=== PATIENT | female | born 1975 | race Caucasian/White ===

== ENCOUNTER → 2018-06-06 | Outpatient (CLI) | payer OTHER ==
[~2018-06-06] VITALS: Ht 162.6 cm; Wt 108.9 kg
[~2018-06-06] MED LIST: ASPIR 8181 M1 PO; ATORVASTATIN CA40 MG PO; BRINTELLIX20 MG PO; CAPTOPRIL 25 MG25 M1 PO; DIFLUNISAL500 MG PO; FANAPT12 MG PO; JANUMET 50-5001 EACH PO; LAMICTAL100 MG PO; LAMICTAL200 MG PO; LASIX 40 MG TAB40 M2 PO; NORCO 7.5-3251 EACH PO; PERCOCET 7.5-31 EACH PO; PROTONIX40 M1 PO; VENTOLIN HFA 1818 GM INH; VRAYLAR3 MG PO; XANAX1 MG PO; ZANAFLEX2 MG PO
[2018-06-06 08:59] VITALS: BP 119/75
--- NOTE | 2018-06-06 09:39 | NUR ---
Pain Clinic Assessment: 1. History of Osteoarthritis: Right Lower Extremity History of Rheumatoid Arthritis: Not Applicable 2. Height: 5 ft. 4 in. 162.6 cm. Weight: 240.0 lb. oz. 108.864 kg. Patient's BMI: 41.2 3. Vital Signs: BP: 119/75 Pulse: 84 Resp: 20 Temp: 02 Sat: 97 ECG Mon: 4. Pain Intensity: 8 5. Fall Risk: Dizziness: N Needs help standing or walking: N Fallen in the last 3 months: N Fall risk comments: 6. Patient on Blood Thinner: None 7. History of Hypertension: Y 8. Opioid Therapy greater than 6 weeks: Y Opiate Contract Signed: 9. Risk Assessment Tool Provided: 10. Functional Assessment Tool: 11. Recreational Drug Use: Never Drug Type: Tobacco Use: Current Every Day Smoker Tobacco Type: Cigarettes Amount or Packs/day: 1 How Many Years: 30 Alcohol Use: Yes Frequency: Special Occasions Quant: 1-2
== END ==
LOC: PAIN 05-30 06:58
DX: M54.5 Low back pain (principal); M79.604 Pain in right leg; M25.551 Pain in right hip; M25.552 Pain in left hip; F17.210 Nicotine dependence, cigarettes, uncomplicated; Z72.89 Other problems related to lifestyle

== ENCOUNTER → 2018-07-11 | Outpatient (CLI) | payer OTHER ==
[~2018-07-11] VITALS: Ht 162.6 cm; Wt 109.0 kg
[2018-07-11 09:19] VITALS: BP 129/70
--- NOTE | 2018-07-11 09:42 | NUR ---
Pain Clinic Assessment: 1. History of Osteoarthritis: Right Lower Extremity History of Rheumatoid Arthritis: Not Applicable 2. Height: 5 ft. 4 in. 162.6 cm. Weight: 240.4 lb. oz. 109.045 kg. Patient's BMI: 41.2 3. Vital Signs: BP: 129/70 Pulse: 93 Resp: 16 Temp: 02 Sat: 98 ECG Mon: 4. Pain Intensity: 7 5. Fall Risk: Dizziness: N Needs help standing or walking: N Fallen in the last 3 months: N Fall risk comments: 6. Patient on Blood Thinner: None 7. History of Hypertension: Y 8. Opioid Therapy greater than 6 weeks: Y Opiate Contract Signed: 9. Risk Assessment Tool Provided: 10. Functional Assessment Tool: 11. Recreational Drug Use: Never Drug Type: Tobacco Use: Current Every Day Smoker Tobacco Type: Amount or Packs/day: How Many Years: Alcohol Use: Yes Frequency: Quant:
--- NOTE | 2018-07-24 11:24 | HPC ---
[facility] [address] [place] [address] PAIN MANAGEMENT CONSULTATION Name: JAN SARKAR Jae Room #: PRE [facility] MAnaliR.#: [id number] Admission: ������������������ Attend Phys: Vernon Mena MD Discharge: ������������������ Date of : 75 Report #: [id number] THIS REPORT FOR: //name// CC: Vernon Xiao DATE OF SERVICE: 07/12/2018 CHIEF COMPLAINT: Pain down in the right hip and right leg. FOLLOWUP HISTORY: The patient is a 43-year-old female who has been followed in the Pain Clinic because of pain and discomfort. She has had pain for a number of years, dating back to 2012. She has come to the Pain Clinic with a desire to undergo treatment to help decrease the pain and discomfort she is having in her right low back area. ALLERGIES: DARVOCET - CAUSES RASH, TRAMADOL - SEIZURES, BUPROPION - SEIZURES. CURRENT MEDICATIONS: Metformin/ sitagliptin 50/500, Zanaflex 2 mg p.r.n., Protonix 40 mg, albuterol 2 puffs q. six hours p.r.n. wheezing, Lipitor 40 mg, Lasix 40 mg, Lamictal 200 mg, lamotrigine mg, aspirin 81 mg, captopril 25 mg b.i.d., diflunisal 500 mg, Vraylar 3 mg at bedtime, Xanax 1 mg one to two tablets t.i.d., Trintellix 20 mg, Percocet 7.5 mg t.i.d., hydrocodone 7.5 mg q. six hours p.r.n., Fanapt 12 mg b.i.d. PAIN CLINIC ASSESSMENT/PQRS: 1. Osteoarthritis: The patient has some arthritic changes in her left and right hip. She is not being treated for rheumatoid arthritis. 2. Height 5 feet 4 inches, weight 240 pounds, BMI is 41.2. 3. Vital signs: Blood pressure 129/70, pulse 93, respiratory rate 16, room air saturation 98%. 4. Pain intensity: 7/10. 5. Fall risk: The patient has not fallen in the last 3 months. 6. Blood thinner: The patient is not on a blood thinning medication. 7. Hypertension: The patient is being treated for hypertension. 8. Opioids greater than 6 weeks: The patient receives her medication from her primary, greater than 6 weeks. 9. Risk assessment tool: Moderate for opioid use. 10. Functional assessment tool: 37/70. 11. Recreational drug use: The patient denies use of recreational drugs. 12. Alcohol: The patient drinks alcoholic beverages on occasion. 13. Tobacco: The patient smokes prn-[id number] packs of cigarettes per day, smoked for the last 30 years. Discussed the benefits of smoking cessation. PHYSICAL EXAMINATION: GENERAL: The patient is a well-developed, well-nourished, somewhat obese black [address] [address] PAIN MANAGEMENT CONSULTATION Name: JAN SARKAR Room #: PRE [facility] Calvert#: [id number] Admission: ������������������ Attend Phys: Vernon Mena MD Discharge: ������������������ Date of : 75 Report #: [id number] female. She appears her stated age. She is alert, oriented x 3. Her affect is appropriate. Speech is fluent. HEENT: Normocephalic, atraumatic. Extraocular eye muscles are intact. Sclerae are nonicteric. Mucous membranes are moist. NECK: Without adenopathy or JVD. Upper extremity muscle strength is judged to be 5/5 for the major muscle groups in the upper extremities. HEART: Regular rate, S1 and S2. LUNGS: Clear to auscultation without rhonchi or rales. MUSCULOSKELETAL: Lower extremities: The patient complains of pain and discomfort in her right groin area. She also complains of pain in the lateral portion of her right leg. The patient has left and right buttocks pain and discomfort. Muscle strength in the lower extremities judged to be 5-/5 for the major muscle groups in the lower extremities. The patient is without significant scoliosis, kyphosis, or lordosis. The patient has perception of pain that increases on the left side. IMPRESSION: 1. Lumbar radiculopathy L4-L5, right lower extremity. 2. Diabetes type 2. 3. Hyperlipidemia. 4. Hypertension. 5. Hypothyroidism. 6. Seizure history. 7. Sciatic/chronic lumbar pain. 8. Aseptic bilateral right hip necrosis, knee pain. 9. Bipolar/anxious depression. 10. Asthma. 11. Morbid obesity. 12. Tobacco abuse. 13. Chronic obstructive pulmonary disease, obstructive sleep apnea in 2013. 14. Osteoarthritis of lumbar and hips. 15. Hospitalization for GI bleed in 2006. RECOMMENDATIONS: We discussed treatment options with the patient. Risks and benefits of an epidural steroid injection were discussed. Possible complications of the procedure, which could include but are not limited to infection, worsening of pain, no improvement in pain, bleeding, nerve damage. The patient elects to proceed. PROCEDURE NOTE: The patient was taken to the procedure area. She was assisted in getting on the examination table. Her back was sterilely prepped with a Betadine solution and allowed to dry. A pillow was placed on the abdomen to bolster and improve positioning. Fluoroscopy using anterior, posterior as well as lateral viewing were implemented. A 25-gauge needle was then advanced into the area of the right L4-L5 area. This was used to anesthetize the area. A 17-gauge Tuohy using a right paraspinous approach was undertaken. A 17-gauge [facility] [address] [place] [address] PAIN MANAGEMENT CONSULTATION Name: JAN SARKAR Room #: PRE [facility].Jae.#: [id number] Admission: ������������������ Attend Phys: Vernon Mena MD Discharge: ������������������ Date of : 75 Report #: [id number] Tuohy with loss of resistance technique was used to gain access to the epidural space. There was no CSF, heme or paresthesia. A total of 80 mg Depo-Medrol, 40 mg triamcinolone and 2 mL of 0.25% bupivacaine was injected. The patient's pain decreased to 6 at the time of discharge. She remained in the Pain Clinic for an appropriate amount of time. She will follow up in the future as needed. We would like to thank you for letting us participate in her care. We hope she continues to improve. ��������������������������������������������� <ELECTRONICALLY SIGNED> ���������������������������������������� By: Vernon Mena MD ��������������������������������������������� 07/24/18 1124 [id number] Vernon Mena MD /nt
== END | disposition home or self-care (01) ==
LOC: PAIN 06:56
DX: M54.16 Radiculopathy, lumbar region (principal); G89.29 Other chronic pain; I10 Essential (primary) hypertension; E03.9 Hypothyroidism, unspecified; E78.5 Hyperlipidemia, unspecified; E11.9 Type 2 diabetes mellitus without complications; F31.9 Bipolar disorder, unspecified; E66.01 Morbid (severe) obesity due to excess calories; J44.9 Chronic obstructive pulmonary disease, unspecified; M19.90 Unspecified osteoarthritis, unspecified site; F17.200 Nicotine dependence, unspecified, uncomplicated; Z87.19 Personal history of other diseases of the digestive system; Z98.890 Other specified postprocedural states; Z79.899 Other long term (current) drug therapy; Z88.8 Allergy status to other drugs, medicaments and biological substances; Z79.891 Long term (current) use of opiate analgesic; Z68.41 Body mass index [BMI] 40.0-44.9, adult; Z79.82 Long term (current) use of aspirin

== ENCOUNTER → 2018-10-10 | Outpatient (CLI) | payer OTHER ==
[~2018-10-10] VITALS: Ht 162.6 cm; Wt 110.6 kg
--- NOTE | ~2018-10-10 | HPC ---
[facility] [address] [place] [address] PAIN MANAGEMENT CONSULTATION Name: JAN SARKAR Room #: REG [facility] Sonido.#: [id number] Admission: 10/10/18 ������������������ Attend Phys: Vernon Mena MD Discharge: ������������������ Date of : 75 Report #: [id number] THIS REPORT FOR: //name// CC: Vernon Xiao MD DATE OF SERVICE: 10/10/2018 CHIEF COMPLAINT: Low back pain that is going down into both legs and into the ankles. HISTORY: The patient is a 43-year-old female who has been followed in the pain clinic. She has had pain for a number of years. States all the way back to 2012. She has undergone epidural steroid injections and gleaned benefits from these. She has noticed now a recurrence of pain and discomfort. Radiates down in the lower portion of her back down into her hips and buttocks areas. She describes it as a constant, burning, shooting, and aching discomfort. There is a stabbing sensation. She rates it as a 7/10. It is exacerbated when she walks and progressively gets worse as the day wears on. She notes that her pain improves somewhat if she props her right side up. Medications were helpful. Rest is beneficial as well. She has returned today to the pain clinic for evaluation because of the worsening of her discomfort. ALLERGIES: DARVOCET -- CAUSE RASH, TRAMADOL -- SEIZURES, BUPROPION MAL SEIZURES. CURRENT MEDICATIONS: Metformin/sitagliptin 50/500, Zanaflex 2 mg p.r.n., Protonix 40 mg, albuterol 2 puffs q. 6 hours p.r.n. wheezing, Lipitor 40 mg, Lasix 40 mg, Lamictal 200 mg, lamotrigine, aspirin 81 mg, captopril 25 mg, b.i.d. diflunisal 500 mg, 3 grams at bedtime, Xanax 1 mg t.i.d., Trintellix 20 mg, Percocet 7.5 mg t.i.d., hydrocodone 7.5 mg q. 6 hours p.r.n., and Fanapt 12 mg b.i.d. PAIN CLINIC ASSESSMENT/PQRS: 1. Osteoarthritis. The patient has some osteoarthritic changes in her left hip. She is not being treated for rheumatoid arthritis. 2. Height is 5 feet 4 inches, weight 243 pounds, BMI is 41. 3. Vital signs: Blood pressure 118/87, pulse 82, respiratory rate 16, room air saturation 97%. 4. Pain intensity 7/10. 5. Fall risk. The patient states that she did fall and collapse in trying to catch herself. Did not seek medical attention. 6. Blood thinner. The patient is not on a blood thinning medication. 7. Hypertension. The patient is being treated for hypertension. 8. Opioids greater than [address] [address] PAIN MANAGEMENT CONSULTATION Name: JAN SARKAR Jae Room #: REG [facility] Enrike#: [id number] Admission: 10/10/18 ������������������ Attend Phys: Vernon Mena MD Discharge: ������������������ Date of : 75 Report #: [id number] 9. Risk assessment tool low for opioid use. 10. Functional assessment tool 37/70. 11. Recreational drug use. The patient denies. 12. Tobacco: The patient continues to smoke and smokes 1 pack of cigarettes per day, has smoked for the last 30 years. I discussed the benefits of smoking cessation. 13. Alcohol. The patient denies frequent use of alcoholic beverages. PHYSICAL EXAMINATION: GENERAL: The patient is a well-developed, well-nourished, obese black female, appears her stated age. She is alert and oriented x 3. Her affect is appropriate. Speech is fluent. HEENT: Normocephalic, atraumatic. Extraocular eye muscles intact. Sclerae nonicteric. Mucous membranes are moist. NECK: Without adenopathy or JVD. HEART: Regular rate. S1, S2. LUNGS: Clear to auscultation without rhonchi or rales. EXTREMITIES: Upper extremity muscle strength judged to be 5/5 for the major muscle groups in the upper extremity. Lower extremity, the patient complains of pain and discomfort in the right groin area. Also, has pain in the lateral portion of her right leg. She has pain in the right buttocks, has pain radiating down into her legs in the L4-L5 dermatomal distribution. IMPRESSION: 1. Lumbar radiculopathy, right lower extremity. 2. Diabetes type 2. 3. Hyperlipidemia. 4. Hypertension. 5. Hypothyroidism. 6. Seizure history. 7. Sciatic/chronic lumbar pain. 8. Aseptic bilateral right hip necrosis/knee pain. 9. Bipolar/anxious/depression. 10. Asthma. 11. Morbid obesity. 12. Tobacco abuse. 13. Chronic obstructive pulmonary disease. 14. Obstructive sleep apnea in 2013. 15. 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 16. Hospitalization for gastrointestinal bleed in 2006. RECOMMENDATIONS: We discussed treatment options with the patient. At this point, she feels that an epidural steroid injection is warranted. She is experiencing pain that is radiating down into her legs. She has had epidural steroid injections and gleaned benefits from these in the past. She has had no complications from them. She would like to proceed with an injection to help [facility] [address] [place] [address] PAIN MANAGEMENT CONSULTATION Name: JAN SARKAR Jae Room #: REG [facility] Sonido.#: [id number] Admission: 10/10/18 ������������������ Attend Phys: Vernon Mena MD Discharge: ������������������ Date of : 75 Report #: [id number] curtail her pain and discomfort. Risks and benefits which could include but are not limited to infection, increased muscle soreness, headache, bleeding, nerve damage, and paralysis were discussed. She elected to proceed. PROCEDURE NOTE: The patient was taken to the procedure area. She was then assisted in getting on the examination table. A pillow was placed under her abdomen to bolster and improve positioning. Fluoroscopy was used. The anterior, posterior as well as lateral, 2 view up and for needle placement. Her back was sterilely prepped with a Betadine solution. A 0.25% bupivacaine was infiltrated at the L4-L5 interspace. A 17-gauge Tuohy with loss of resistance technique was used to gain access to the epidural space. There was no CSF, heme, or paresthesia. After the L4-L5 interspace was anesthetized using a 25-gauge needle. A 17-gauge Tuohy with loss of resistance technique was used to gain access to the epidural space. There was no CSF, heme or paresthesia. A total of 80 mg Depo-Medrol, 40 mg triamcinolone, and 2 mL of 0.25% bupivacaine was injected. The patient tolerated the procedure well. There were no complications. She had 7 seconds fluoroscopy time. She will follow up in the future as needed. We would like to thank you for letting us participate in her care. We hope she continues to improve. ��������������������������������������������� ���������������������������������������� By: ��������������������������������������������� 1110 1323 Vernon Mena MD /[facility]
[2018-10-10 11:11] VITALS: BP 119/87
--- NOTE | 2018-10-10 11:23 | NUR ---
Pain Clinic Assessment: 1. History of Osteoarthritis: Right Lower Extremity History of Rheumatoid Arthritis: Not Applicable 2. Height: 5 ft. 4 in. 162.6 cm. Weight: 243.8 lb. oz. 110.587 kg. Patient's BMI: 41.8 3. Vital Signs: BP: 119/87 Pulse: 82 Resp: 16 Temp: 02 Sat: 97 ECG Mon: 4. Pain Intensity: 7 5. Fall Risk: Dizziness: Y Needs help standing or walking: N Fallen in the last 3 months: Y Fall risk comments: 6. Patient on Blood Thinner: None 7. History of Hypertension: Y 8. Opioid Therapy greater than 6 weeks: Y Opiate Contract Signed: 9. Risk Assessment Tool Provided: 3-LOW 10. Functional Assessment Tool: 11. Recreational Drug Use: Never Drug Type: Tobacco Use: Current Every Day Smoker Tobacco Type: Cigarettes Amount or Packs/day: 1 PACK How Many Years: 30 Alcohol Use: No Frequency: Quant:
== END | disposition home or self-care (01) ==
LOC: PAIN 07-04 07:34
DX: M54.16 Radiculopathy, lumbar region (principal); E11.9 Type 2 diabetes mellitus without complications; E78.5 Hyperlipidemia, unspecified; I10 Essential (primary) hypertension; E03.9 Hypothyroidism, unspecified; G89.29 Other chronic pain; F41.9 Anxiety disorder, unspecified; F32.9 Major depressive disorder, single episode, unspecified; J45.909 Unspecified asthma, uncomplicated; E66.01 Morbid (severe) obesity due to excess calories; J44.9 Chronic obstructive pulmonary disease, unspecified; M47.896 Other spondylosis, lumbar region; F17.210 Nicotine dependence, cigarettes, uncomplicated; Z88.8 Allergy status to other drugs, medicaments and biological substances; Z79.84 Long term (current) use of oral hypoglycemic drugs; Z79.899 Other long term (current) drug therapy; Z79.82 Long term (current) use of aspirin

== ENCOUNTER → 2018-12-14 | Outpatient (CLI) | payer OTHER ==
[~2018-12-14] VITALS: Ht 162.6 cm; Wt 113.0 kg
--- NOTE | ~2018-12-14 | HPC ---
[facility] [address] [place] [address] PAIN MANAGEMENT CONSULTATION Name: JAN SARKAR Room #: REG [facility] Sonido.#: [id number] Admission: 12/14/18 Attend Phys: Vernon Mena MD Discharge: Date of : 75 Report #: [id number] THIS REPORT FOR: //name// CC: Vernon Xiao DATE OF SERVICE: 12/14/2018 CHIEF COMPLAINT: Pain in the low back that continues to radiate down into both legs and down into the side of the ankles. HISTORY: The patient is a 43-year-old female who has been seen in the pain clinic because of lumbar radiculopathy. She has undergone epidural steroid injection and gleaned benefit from this. She returns today indicating that her pain continues to be problematic. She rates it as an 8/10. Did receive about 75% improvement after the last injection, but her pain has reoccurred at this juncture. She has had no complications from the procedure. She continues to have pain that is described as burning, shooting, aching, throbbing, sharp and stabbing. Notes the pain is exacerbated when she is walking. Pain continues to worsen as the day wears on. Sitting as well as standing can be problematic. Sometimes she notes her pain is improved when she props her right side up. Medications and rest are beneficial. Denies any new problems with bowel or bladder function. ALLERGIES: DARVOCET CAUSE RASH, TRAMADOL SEIZURES, BUPROPION SEIZURES. CURRENT MEDICATIONS: Metformin/sitagliptin 50/500, Zanaflex 2 mg, Protonix 40 mg, albuterol puff 2 q.6 hours p.r.n. wheezing, Lipitor 40 mg, Lasix 40 mg, Lamictal 200 mg, lamotrigine, aspirin 81 mg, captopril 25 mg b.i.d., diflunisal 500 mg, Xanax 1 mg t.i.d., Trintellix 20 mg, Percocet 7.5 mg t.i.d., hydrocodone 7.5 mg q.6 hours p.r.n., Fanapt 12 mg b.i.d. PAIN CLINIC ASSESSMENT AND PQRS: 1. Osteoarthritis. The patient has some osteoarthritic changes in her hip. She is not being treated for rheumatoid arthritis. 2. Height 5 feet 4 inches, weight 249 pounds, BMI is 42. 3. Blood pressure 132/65, pulse 73, respiratory rate 16, room air saturation 95%. 4. Pain intensity, 10. 5. Fall history. The patient has not fallen in the last 3 months. 6. Blood thinner. The patient is not on a blood thinning medication. 7. Hypertension. The patient is being treated for hypertension. 8. Opioids greater than 6 weeks. The patient receives her medications from one source. 9. Risk assessment tool, 07/08 low. 10. Functional assessment tool, [place] [address] PAIN MANAGEMENT CONSULTATION Name: MELLOJAN Room #: REG [facility] Calvert#: [id number] Admission: 12/14/18 Attend Phys: Vernon Mena MD Discharge: Date of : 75 Report #: [id number] 11. Recreational drug use. The patient denies use of recreational drugs. 12. Tobacco: The patient currently smokes. Smoking cessation benefits have been discussed. 13. Alcohol: The patient denies frequent use of alcoholic beverages. PHYSICAL EXAMINATION: GENERAL: The patient is a well-developed, well-nourished, obese, black female. Appears her stated age. She is alert and oriented x 3. Her affect is appropriate. Speech is fluent. HEENT: Normocephalic, atraumatic. Extraocular eye muscles intact. Sclerae nonicteric. Mucous membranes are moist. NECK: Without adenopathy or JVD. HEART: Regular rate. S1, S2. LUNGS: Clear to auscultation without rhonchi or rales. MUSCULOSKELETAL: Upper extremity muscle strength judged to be 5/5 for the major muscle groups in the upper extremity. Lower extremity, the patient complains of pain and discomfort that radiates down into her right groin area. The patient has some pain in the lateral portions of her right leg as well. Has pain, which is most problematic in the L4-L5 dermatomal distribution today. IMPRESSION: 1. Lumbar radiculopathy, right lower extremity. 2. Diabetes type 2. 3. Hyperlipidemia. 4. Hypertension. 5. Hypothyroidism. 6. Seizure history. 7. Sciatic/chronic lumbar pain. 8. Aseptic bilateral hip necrosis/knee pain. 9. Bipolar/anxious/depression. 10. Asthma. 11. Morbid obesity. 12. Tobacco abuse. 13. Chronic obstructive pulmonary disease. 14. Obstructive sleep apnea in 2013. 15. 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 16. Hospitalization for gastrointestinal bleed in 2006. RECOMMENDATIONS: We discussed treatment options with the patient. Risks and benefits of an epidural steroid injection were discussed. Possible complications of the procedure were again reviewed. They include but are not limited to infection, worsening pain, no improvement in pain, increased muscle soreness, possibility of nerve damage. The patient elects to proceed. PROCEDURE NOTE: The patient was taken to the procedure area. She was then assisted in getting on the examination table. A pillow was placed under the [facility] [address] [place] [address] PAIN MANAGEMENT CONSULTATION Name: JAN SARKAR Room #: REG [facility] Sonido.#: [id number] Admission: 12/14/18 Attend Phys: Vernon Mena MD Discharge: Date of : 75 Report #: [id number] abdomen to bolster and improve positioning. Fluoroscopy using anterior and posterior viewing were undertaken. A Betadine solution was placed at the L4-L5 area. This was allowed to dry. A 25-gauge needle was then used to anesthetize the area. After this area had been anesthetized, a 17-gauge Tuohy with loss of resistance technique was used to gain access to the epidural space. There was no CSF, heme or paresthesia. Total of 80 mg Depo-Medrol, 40 mg triamcinolone and 2 mL of 0.25% bupivacaine was injected. The patient tolerated the procedure well. There were no complications. She remained in the pain clinic for an appropriate amount of time. She will follow up in the future as needed. We have reminded the patient that glucose levels may arise as a result of epidural steroid injections. She will monitor blood glucose levels and seek treatment should she note it to be problematic. By: [id number] Vernon Mena MD /[facility]
[2018-12-14 08:41] VITALS: BP 132/65
--- NOTE | 2018-12-14 08:52 | NUR ---
Pain Clinic Assessment: 1. History of Osteoarthritis: Right Lower Extremity History of Rheumatoid Arthritis: Not Applicable 2. Height: 5 ft. 4 in. 162.6 cm. Weight: 249.2 lb. oz. 113.037 kg. Patient's BMI: 42.8 3. Vital Signs: BP: 132/65 Pulse: 73 Resp: 16 Temp: 02 Sat: 94 ECG Mon: 4. Pain Intensity: 8 5. Fall Risk: Dizziness: Y Needs help standing or walking: N Fallen in the last 3 months: N Fall risk comments: 6. Patient on Blood Thinner: None 7. History of Hypertension: Y 8. Opioid Therapy greater than 6 weeks: Y Opiate Contract Signed: 9. Risk Assessment Tool Provided: 3-LOW 10. Functional Assessment Tool: 11. Recreational Drug Use: Never Drug Type: Tobacco Use: Current Every Day Smoker Tobacco Type: Amount or Packs/day: How Many Years: Alcohol Use: No Frequency: Quant:
== END | disposition home or self-care (01) ==
LOC: PAIN 12-05 06:49
DX: M54.16 Radiculopathy, lumbar region (principal); G89.29 Other chronic pain; I10 Essential (primary) hypertension; E11.9 Type 2 diabetes mellitus without complications; E78.5 Hyperlipidemia, unspecified; E03.9 Hypothyroidism, unspecified; J44.9 Chronic obstructive pulmonary disease, unspecified; R56.9 Unspecified convulsions; F31.9 Bipolar disorder, unspecified; E66.01 Morbid (severe) obesity due to excess calories; F17.210 Nicotine dependence, cigarettes, uncomplicated; G47.33 Obstructive sleep apnea (adult) (pediatric); M19.90 Unspecified osteoarthritis, unspecified site; Z87.19 Personal history of other diseases of the digestive system; Z98.890 Other specified postprocedural states; Z79.899 Other long term (current) drug therapy; Z88.8 Allergy status to other drugs, medicaments and biological substances; Z79.891 Long term (current) use of opiate analgesic; Z79.82 Long term (current) use of aspirin; Z68.41 Body mass index [BMI] 40.0-44.9, adult

== ENCOUNTER → 2019-04-10 | Outpatient (CLI) | payer OTHER ==
[~2019-04-10] VITALS: Ht 162.6 cm; Wt 107.7 kg
[2019-04-10 10:47] VITALS: BP 121/70
--- NOTE | 2019-04-10 10:58 | NUR ---
Pain Clinic Assessment: 1. History of Osteoarthritis: Right Lower Extremity History of Rheumatoid Arthritis: Not Applicable 2. Height: 5 ft. 4 in. 162.6 cm. Weight: 237.4 lb. oz. 107.684 kg. Patient's BMI: 40.7 3. Vital Signs: BP: 121/70 Pulse: 96 Resp: 16 Temp: 02 Sat: 98 ECG Mon: 4. Pain Intensity: 7 5. Fall Risk: Dizziness: N Needs help standing or walking: N Fallen in the last 3 months: N Fall risk comments: 6. Patient on Blood Thinner: None 7. History of Hypertension: Y 8. Opioid Therapy greater than 6 weeks: Y Opiate Contract Signed: 9. Risk Assessment Tool Provided: 3-LOW 10. Functional Assessment Tool: 11. Recreational Drug Use: Never Drug Type: Tobacco Use: Current Every Day Smoker Tobacco Type: Cigarettes Amount or Packs/day: 2 How Many Years: 30 Alcohol Use: Yes Frequency: Weekly Quant: 2-4
--- NOTE | 2019-04-24 13:08 | HPC ---
[facility] [address] [place] [address] PAIN MANAGEMENT CONSULTATION Name: JAN SARKAR Jae Room #: REG GRACE Sonido.#: [id number] Admission: 04/10/19 Attend Phys: Vernon Mena MD Discharge: Date of : 75 Report #: [id number] THIS REPORT FOR: //name// CC: Vernon Xiao DATE OF SERVICE: 04/10/2019 CHIEF COMPLAINT: Return of low back pain. HISTORY: The patient is a 44-year-old who has been seen in the pain clinic because of lumbar radiculopathy. She has undergone epidural steroid injections. After injections, she received about 75% of pain improvement. Her last injection was in 12/2018. At this point, she has noticed that she is experiencing pain in the lumbar area that radiates down into her back and into both legs. Also, has some discomfort in the lateral portion of her ankles. Injections have been helpful. She has had some problems with her pain since 2012. Describes the pain now as a burning, shooting, aching discomfort with throbbing and rates it as a 7/10. Walking is somewhat problematic. Notes that her pain worsens as the day progresses. Sitting and standing can be problematic. Finds that if she props her right side up and uses medications, her pain improves somewhat. She has returned today for an injection. ALLERGIES: DARVOCET cause rash, TRAMADOL cause seizures CURRENT MEDICATIONS: Metformin/sitagliptin 50/500, Zanaflex 2 mg, Protonix 40 mg, albuterol puff two q. 6 hours p.r.n. wheezing, Lipitor 40 mg, Lasix 40 mg, Lamictal 200 mg, and lamotrigine, aspirin 81 mg, captopril 25 mg, Diflunisal 500 mg, Xanax 1 mg t.i.d., Trintellix 20 mg, Percocet 7.5 mg t.i.d., hydrocodone 7.5 mg q. 6 hours p.r.n., and Fanapt 12 mg b.i.d. PHYSICAL EXAMINATION: GENERAL: The patient is a well-developed, well-nourished, obese black female, appears her stated age. She is alert and oriented x 3. Her affect is appropriate. The patient is having pain and discomfort, which radiating down into her legs. She has pain and discomfort today in the L4-L5 dermatomal distribution. IMPRESSION: 1. Lumbar radiculopathy, right lower extremity. 2. Type 2 diabetes. 3. Hyperlipidemia. 4. Hypertension. 5. Hypothyroidism. 6. Seizure history. 7. [place] [address] PAIN MANAGEMENT CONSULTATION Name: MELLOJAN Room #: REG GRACE Head.#: [id number] Admission: 04/10/19 Attend Phys: Vernon Mena MD Discharge: Date of : 75 Report #: [id number] 8. Aseptic bilateral hip necrosis/knee pain. 9. Bipolar/anxious depression. 10. Asthma. 11. Morbid obesity. 12. Tobacco abuse. 13. Chronic obstructive pulmonary disease. 14. Chronic sleep apnea since 2013. 15. 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 16. Hospitalization for esophageal bleed in 2006. RECOMMENDATIONS: We discussed treatment options with the patient. Risks and benefits of an epidural steroid injection were discussed. Possible complications of the procedure, which could include but are not limited to infection, worsening of pain, no improvement in pain, spinal headache, nerve damage were reviewed. The patient elects to proceed. PROCEDURE NOTE: The patient was taken to the procedure area. She has been assisted in getting on the examination table. Her back was sterilely prepped with a Betadine solution. A 0.25% bupivacaine was infiltrated at the L4-L5 area using 0.25% bupivacaine, and a 25-gauge needle. Aspiration at the L4-L5 area was performed after a 17-gauge Tuohy with loss of resistance technique was used to gain access at the L4-L5 interspace. A total of 80 mg Depo-Medrol, 40 mg triamcinolone and 2 mL of 0.25% bupivacaine was injected. The patient will follow and monitor blood sugars. She will call us if she has any concerns. The patient's pain will be monitored. She will call us if she has any concerns. <ELECTRONICALLY SIGNED> By: Vernon Mena MD 04/24/19 [id number] Vrenon Mena MD /nt
== END | disposition home or self-care (01) ==
LOC: PAIN 07:02
DX: M54.16 Radiculopathy, lumbar region (principal); G89.29 Other chronic pain; F17.210 Nicotine dependence, cigarettes, uncomplicated; Z98.890 Other specified postprocedural states; Z79.899 Other long term (current) drug therapy; Z88.8 Allergy status to other drugs, medicaments and biological substances; Z79.82 Long term (current) use of aspirin

== ENCOUNTER → 2019-09-27 | Outpatient (CLI) | payer OTHER ==
[~2019-09-27] VITALS: Ht 162.6 cm; Wt 100.2 kg
[2019-09-27 12:47] VITALS: BP 127/71
--- NOTE | 2019-09-27 12:53 | NUR ---
Pain Clinic Assessment: 1. History of Osteoarthritis: Right Lower Extremity LOW BACK History of Rheumatoid Arthritis: Not Applicable 2. Height: 5 ft. 4 in. 162.6 cm. Weight: 220.8 lb. oz. 100.154 kg. Patient's BMI: 37.9 3. Vital Signs: BP: 127/71 Pulse: 95 Resp: 20 Temp: 02 Sat: 97 ECG Mon: 4. Pain Intensity: 7 5. Fall Risk: Dizziness: N Needs help standing or walking: N Fallen in the last 3 months: N Fall risk comments: 6. Patient on Blood Thinner: None 7. History of Hypertension: Y 8. Opioid Therapy greater than 6 weeks: Y Opiate Contract Signed: 9. Risk Assessment Tool Provided: 3-LOW 10. Functional Assessment Tool: 11. Recreational Drug Use: Never Drug Type: Tobacco Use: Current Every Day Smoker Tobacco Type: Cigarettes Amount or Packs/day: PACK How Many Years: Alcohol Use: Yes Frequency: Weekly Quant: 1-2
== END | disposition home or self-care (01) ==
LOC: PAIN 04-03 06:52 → EDSTATUS 04-03 12:38 → PAIN 04-03 13:27
DX: M54.16 Radiculopathy, lumbar region (principal); G89.29 Other chronic pain; I10 Essential (primary) hypertension; E78.5 Hyperlipidemia, unspecified; E03.9 Hypothyroidism, unspecified; E11.9 Type 2 diabetes mellitus without complications; J44.9 Chronic obstructive pulmonary disease, unspecified; F31.9 Bipolar disorder, unspecified; G47.30 Sleep apnea, unspecified; F17.210 Nicotine dependence, cigarettes, uncomplicated; Z98.890 Other specified postprocedural states; Z79.899 Other long term (current) drug therapy

== ENCOUNTER → 2020-04-22 | Outpatient (CLI) | payer OTHER ==
[~2020-04-22] VITALS: Ht 162.6 cm; Wt 94.8 kg
[2020-04-22 10:03] VITALS: BP 125/75
--- NOTE | 2020-04-22 10:20 | NUR ---
Pain Clinic Assessment: 1. History of Osteoarthritis: Right Lower Extremity LOW BACK History of Rheumatoid Arthritis: Not Applicable 2. Height: 5 ft. 4 in. 162.6 cm. Weight: 209.0 lb. oz. 94.802 kg. Patient's BMI: 35.9 3. Vital Signs: BP: 125/75 Pulse: 89 Resp: 20 Temp: 02 Sat: 100 ECG Mon: 4. Pain Intensity: 8 5. Fall Risk: Dizziness: N Needs help standing or walking: N Fallen in the last 3 months: N Fall risk comments: 6. Patient on Blood Thinner: None 7. History of Hypertension: Y 8. Opioid Therapy greater than 6 weeks: Y Opiate Contract Signed: 9. Risk Assessment Tool Provided: 3-LOW 10. Functional Assessment Tool: 11. Recreational Drug Use: Never Drug Type: Tobacco Use: Current Every Day Smoker Tobacco Type: Amount or Packs/day: 1 PACK How Many Years: 30 Alcohol Use: Yes Frequency: Weekly Quant: 2-3 BEERS
== END | disposition home or self-care (01) ==
LOC: PAIN 01-03 06:52
PROVIDERS: ATTEND Anesthesiology Pain Medicine
DX: M54.16 Radiculopathy, lumbar region (principal); G89.29 Other chronic pain; I10 Essential (primary) hypertension; E78.5 Hyperlipidemia, unspecified; E11.9 Type 2 diabetes mellitus without complications; E03.9 Hypothyroidism, unspecified; J44.9 Chronic obstructive pulmonary disease, unspecified; F31.9 Bipolar disorder, unspecified; F41.9 Anxiety disorder, unspecified; G47.30 Sleep apnea, unspecified; E66.01 Morbid (severe) obesity due to excess calories; F17.210 Nicotine dependence, cigarettes, uncomplicated; Z98.890 Other specified postprocedural states; Z79.899 Other long term (current) drug therapy; Z88.8 Allergy status to other drugs, medicaments and biological substances

== ENCOUNTER → 2020-05-29 | Outpatient (CLI) | payer OTHER ==
[~2020-05-29] VITALS: Ht 162.6 cm; Wt 95.1 kg
[~2020-05-29] MED LIST changes: +HYDROCODON-ACE1 EAC8 PO
[2020-05-29 12:39] VITALS: BP 119/61
--- NOTE | 2020-05-29 12:40 | NUR ---
Pain Clinic Assessment: 1. History of Osteoarthritis: Right Lower Extremity LOW BACK History of Rheumatoid Arthritis: Not Applicable 2. Height: 5 ft. 4 in. 162.6 cm. Weight: 209.6 lb. oz. 95.074 kg. Patient's BMI: 36.0 3. Vital Signs: BP: 119/61 Pulse: 86 Resp: 18 Temp: 02 Sat: 98 ECG Mon: 4. Pain Intensity: 8 5. Fall Risk: Dizziness: N Needs help standing or walking: N Fallen in the last 3 months: N Fall risk comments: 6. Patient on Blood Thinner: None 7. History of Hypertension: Y 8. Opioid Therapy greater than 6 weeks: Y Opiate Contract Signed: 9. Risk Assessment Tool Provided: 3-LOW 10. Functional Assessment Tool: 11. Recreational Drug Use: Never Drug Type: Tobacco Use: Current Every Day Smoker Tobacco Type: Amount or Packs/day: How Many Years: Alcohol Use: Yes Frequency: Weekly Quant: 6
== END ==
LOC: PAIN 07:12
PROVIDERS: ATTEND Anesthesiology Pain Medicine
DX: Z76.0 Encounter for issue of repeat prescription (principal); M54.5 Low back pain; Z79.891 Long term (current) use of opiate analgesic; Z79.899 Other long term (current) drug therapy; Z79.82 Long term (current) use of aspirin

== ENCOUNTER → 2020-07-03 | Outpatient (CLI) | payer OTHER ==
[~2020-07-03] VITALS: Ht 162.6 cm; Wt 92.6 kg
[~2020-07-03] MED LIST changes: +PERCOCET 10-321 EAC1 PO
[2020-07-03 10:40] VITALS: BP 120/73
--- NOTE | 2020-07-03 10:45 | NUR ---
Pain Clinic Assessment: 1. History of Osteoarthritis: Right Lower Extremity LOW BACK History of Rheumatoid Arthritis: Not Applicable 2. Height: 5 ft. 4 in. 162.6 cm. Weight: 204.2 lb. oz. 92.625 kg. Patient's BMI: 35.0 3. Vital Signs: BP: 120/73 Pulse: 85 Resp: 20 Temp: 02 Sat: 99 ECG Mon: 4. Pain Intensity: 7 5. Fall Risk: Dizziness: N Needs help standing or walking: N Fallen in the last 3 months: N Fall risk comments: 6. Patient on Blood Thinner: None 7. History of Hypertension: Y 8. Opioid Therapy greater than 6 weeks: Y Opiate Contract Signed: 9. Risk Assessment Tool Provided: 3-LOW 10. Functional Assessment Tool: 11. Recreational Drug Use: Never Drug Type: Tobacco Use: Current Every Day Smoker Tobacco Type: Cigarettes Amount or Packs/day: 1 PPD How Many Years: Alcohol Use: Yes Frequency: Weekly Quant: BOTTLE OF WINE
== END ==
LOC: PAIN 07:01
PROVIDERS: ATTEND Anesthesiology Pain Medicine
DX: M54.16 Radiculopathy, lumbar region (principal); E11.9 Type 2 diabetes mellitus without complications; E78.2 Mixed hyperlipidemia; I10 Essential (primary) hypertension; E03.9 Hypothyroidism, unspecified; G40.909 Epilepsy, unspecified, not intractable, without status epilepticus; J45.909 Unspecified asthma, uncomplicated; E66.01 Morbid (severe) obesity due to excess calories; J44.9 Chronic obstructive pulmonary disease, unspecified; G47.30 Sleep apnea, unspecified; F32.9 Major depressive disorder, single episode, unspecified; F41.9 Anxiety disorder, unspecified; Z79.899 Other long term (current) drug therapy; Z79.891 Long term (current) use of opiate analgesic

== ENCOUNTER → 2020-07-29 | Outpatient (CLI) | payer OTHER ==
[~2020-07-29] VITALS: Ht 162.6 cm; Wt 90.6 kg
[2020-07-29 10:06] VITALS: BP 119/46
--- NOTE | 2020-07-29 10:17 | NUR ---
Pain Clinic Assessment: 1. History of Osteoarthritis: Right Lower Extremity LOW BACK History of Rheumatoid Arthritis: Not Applicable 2. Height: 5 ft. 4 in. 162.6 cm. Weight: 199.8 lb. oz. 90.629 kg. Patient's BMI: 34.3 3. Vital Signs: BP: 119/46 Pulse: 82 Resp: 18 Temp: 02 Sat: 98 ECG Mon: 4. Pain Intensity: 7 5. Fall Risk: Dizziness: N Needs help standing or walking: N Fallen in the last 3 months: N Fall risk comments: 6. Patient on Blood Thinner: None 7. History of Hypertension: Y 8. Opioid Therapy greater than 6 weeks: Y Opiate Contract Signed: 07/29/20 9. Risk Assessment Tool Provided: 3-LOW 10. Functional Assessment Tool: 11. Recreational Drug Use: Never Drug Type: Tobacco Use: Current Every Day Smoker Tobacco Type: Cigarettes Amount or Packs/day: 1 1/2 PK/D How Many Years: Alcohol Use: Yes Frequency: Daily Quant: 3 BEERS
== END | disposition home or self-care (01) ==
LOC: PAIN 06:51
PROVIDERS: ATTEND Anesthesiology Pain Medicine
DX: M54.16 Radiculopathy, lumbar region (principal); G89.29 Other chronic pain; I10 Essential (primary) hypertension; E78.5 Hyperlipidemia, unspecified; E11.9 Type 2 diabetes mellitus without complications; E03.9 Hypothyroidism, unspecified; J44.9 Chronic obstructive pulmonary disease, unspecified; G47.30 Sleep apnea, unspecified; F31.9 Bipolar disorder, unspecified; E66.01 Morbid (severe) obesity due to excess calories; F17.210 Nicotine dependence, cigarettes, uncomplicated; M19.90 Unspecified osteoarthritis, unspecified site; Z98.890 Other specified postprocedural states; Z79.899 Other long term (current) drug therapy

== ENCOUNTER → 2020-08-28 | Outpatient (CLI) | payer OTHER ==
[~2020-08-28] VITALS: Ht 162.6 cm; Wt 88.5 kg
[2020-08-28 08:47] VITALS: BP 106/68
--- NOTE | 2020-08-28 08:54 | NUR ---
Pain Clinic Assessment: 1. History of Osteoarthritis: Right Lower Extremity LOW BACK History of Rheumatoid Arthritis: Not Applicable 2. Height: 5 ft. 4 in. 162.6 cm. Weight: 195.0 lb. oz. 88.452 kg. Patient's BMI: 33.5 3. Vital Signs: BP: 106/68 Pulse: 79 Resp: 14 Temp: 02 Sat: 97 ECG Mon: 4. Pain Intensity: 6 5. Fall Risk: Dizziness: N Needs help standing or walking: N Fallen in the last 3 months: N Fall risk comments: 6. Patient on Blood Thinner: None 7. History of Hypertension: Y 8. Opioid Therapy greater than 6 weeks: Y Opiate Contract Signed: 07/29/20 9. Risk Assessment Tool Provided: 3-LOW 10. Functional Assessment Tool: 11. Recreational Drug Use: Never Drug Type: Tobacco Use: Current Every Day Smoker Tobacco Type: Cigarettes Amount or Packs/day: 1 How Many Years: 30 Alcohol Use: Yes Frequency: Weekly Quant: WINE
== END ==
LOC: PAIN 07:50
PROVIDERS: ATTEND Clinical Nurse Specialist Adult Health
DX: M54.16 Radiculopathy, lumbar region (principal); E11.9 Type 2 diabetes mellitus without complications; I10 Essential (primary) hypertension; E66.01 Morbid (severe) obesity due to excess calories; F32.9 Major depressive disorder, single episode, unspecified; M47.816 Spondylosis without myelopathy or radiculopathy, lumbar region; M16.0 Bilateral primary osteoarthritis of hip; F17.200 Nicotine dependence, unspecified, uncomplicated; F10.10 Alcohol abuse, uncomplicated; Z88.8 Allergy status to other drugs, medicaments and biological substances; Z79.82 Long term (current) use of aspirin; Z79.891 Long term (current) use of opiate analgesic; Z79.899 Other long term (current) drug therapy

== ENCOUNTER → 2020-09-25 | Outpatient (CLI) | payer OTHER ==
[~2020-09-25] VITALS: Ht 162.6 cm; Wt 88.0 kg
[~2020-09-25] MED LIST changes: +LAMOTRIGINE100 MG PO
[2020-09-25 09:53] VITALS: BP 136/79
--- NOTE | 2020-09-25 10:05 | NUR ---
Pain Clinic Assessment: 1. History of Osteoarthritis: Right Lower Extremity LOW BACK History of Rheumatoid Arthritis: Not Applicable 2. Height: 5 ft. 4 in. 162.6 cm. Weight: 194.0 lb. oz. 87.998 kg. Patient's BMI: 33.3 3. Vital Signs: BP: 136/79 Pulse: 104 Resp: 18 Temp: 02 Sat: 98 ECG Mon: 4. Pain Intensity: 8 5. Fall Risk: Dizziness: N Needs help standing or walking: N Fallen in the last 3 months: N Fall risk comments: 6. Patient on Blood Thinner: None 7. History of Hypertension: Y 8. Opioid Therapy greater than 6 weeks: Y Opiate Contract Signed: 07/29/20 9. Risk Assessment Tool Provided: 3-LOW 10. Functional Assessment Tool: 11. Recreational Drug Use: Never Drug Type: Tobacco Use: Current Every Day Smoker Tobacco Type: Cigarettes Amount or Packs/day: 1/2 pack How Many Years: 32 Alcohol Use: Yes Frequency: Weekly Quant: 2 wine
== END ==
LOC: PAIN 07:13
PROVIDERS: ATTEND Anesthesiology Pain Medicine
DX: M54.16 Radiculopathy, lumbar region (principal); I10 Essential (primary) hypertension; M79.661 Pain in right lower leg; C34.90 Malignant neoplasm of unspecified part of unspecified bronchus or lung; E78.5 Hyperlipidemia, unspecified; E03.9 Hypothyroidism, unspecified; G40.909 Epilepsy, unspecified, not intractable, without status epilepticus; E66.01 Morbid (severe) obesity due to excess calories; J44.9 Chronic obstructive pulmonary disease, unspecified; M19.90 Unspecified osteoarthritis, unspecified site; E11.9 Type 2 diabetes mellitus without complications; F32.9 Major depressive disorder, single episode, unspecified; F41.9 Anxiety disorder, unspecified; Z79.899 Other long term (current) drug therapy; Z79.891 Long term (current) use of opiate analgesic; Z88.1 Allergy status to other antibiotic agents; Z72.89 Other problems related to lifestyle; Z88.8 Allergy status to other drugs, medicaments and biological substances

== ENCOUNTER → 2020-11-18 | Outpatient (CLI) | payer OTHER ==
[~2020-11-18] VITALS: Ht 162.6 cm; Wt 87.6 kg
[2020-11-18 09:34] VITALS: BP 123/75
--- NOTE | 2020-11-18 10:02 | NUR ---
Pain Clinic Assessment: 1. History of Osteoarthritis: Right Lower Extremity LOW BACK History of Rheumatoid Arthritis: Not Applicable 2. Height: 5 ft. 4 in. 162.6 cm. Weight: 193.2 lb. oz. 87.635 kg. Patient's BMI: 33.1 3. Vital Signs: BP: 123/75 Pulse: 101 Resp: 16 Temp: 02 Sat: 96 ECG Mon: 4. Pain Intensity: 8 5. Fall Risk: Dizziness: N Needs help standing or walking: N Fallen in the last 3 months: Y Fall risk comments: 6. Patient on Blood Thinner: None 7. History of Hypertension: Y 8. Opioid Therapy greater than 6 weeks: Y Opiate Contract Signed: 07/29/20 9. Risk Assessment Tool Provided: 3-LOW 10. Functional Assessment Tool: 11. Recreational Drug Use: Never Drug Type: Tobacco Use: Current Every Day Smoker Tobacco Type: Cigarettes Amount or Packs/day: 1 PACK How Many Years: Alcohol Use: Yes Frequency: Monthly Quant: 3
== END | disposition home or self-care (01) ==
LOC: PAIN 07:28
PROVIDERS: ATTEND Anesthesiology Pain Medicine
DX: M54.16 Radiculopathy, lumbar region (principal); G89.29 Other chronic pain; I10 Essential (primary) hypertension; E03.9 Hypothyroidism, unspecified; E11.9 Type 2 diabetes mellitus without complications; E78.5 Hyperlipidemia, unspecified; G47.30 Sleep apnea, unspecified; F31.9 Bipolar disorder, unspecified; J44.9 Chronic obstructive pulmonary disease, unspecified; E66.01 Morbid (severe) obesity due to excess calories; F17.210 Nicotine dependence, cigarettes, uncomplicated; Z98.890 Other specified postprocedural states; Z79.899 Other long term (current) drug therapy

== ENCOUNTER → 2020-12-16 | Outpatient (CLI) | payer OTHER ==
[~2020-12-16] VITALS: Ht 162.6 cm; Wt 86.2 kg
[~2020-12-16] MED LIST changes: +LIPITOR80 MG PO; +XTAMPZA ER18 MG PO
[2020-12-16 08:52] VITALS: BP 123/61
--- NOTE | 2020-12-16 08:58 | NUR ---
Pain Clinic Assessment: 1. History of Osteoarthritis: Right Lower Extremity LOW BACK History of Rheumatoid Arthritis: Not Applicable 2. Height: 5 ft. 4 in. 162.6 cm. Weight: 190.0 lb. oz. 86.184 kg. Patient's BMI: 32.6 3. Vital Signs: BP: 123/61 Pulse: 101 Resp: 16 Temp: 02 Sat: 100 ECG Mon: 4. Pain Intensity: 4 5. Fall Risk: Dizziness: N Needs help standing or walking: N Fallen in the last 3 months: Y Fall risk comments: 6. Patient on Blood Thinner: None 7. History of Hypertension: Y 8. Opioid Therapy greater than 6 weeks: Y Opiate Contract Signed: 07/29/20 9. Risk Assessment Tool Provided: 2-LOW 10. Functional Assessment Tool: 11. Recreational Drug Use: Never Drug Type: Tobacco Use: Current Every Day Smoker Tobacco Type: Cigarettes Amount or Packs/day: 2 PACKS How Many Years: Alcohol Use: Yes Frequency: Monthly Quant: 3
== END ==
LOC: PAIN 06:54
PROVIDERS: ATTEND Clinical Nurse Specialist Adult Health
DX: G89.29 Other chronic pain (principal); M54.16 Radiculopathy, lumbar region; I10 Essential (primary) hypertension; M53.3 Sacrococcygeal disorders, not elsewhere classified; M16.0 Bilateral primary osteoarthritis of hip; M87.88 Other osteonecrosis, other site; E66.01 Morbid (severe) obesity due to excess calories; J44.9 Chronic obstructive pulmonary disease, unspecified; F32.89 Other specified depressive episodes; F41.8 Other specified anxiety disorders; F17.200 Nicotine dependence, unspecified, uncomplicated; F10.10 Alcohol abuse, uncomplicated; Z88.8 Allergy status to other drugs, medicaments and biological substances; Z79.891 Long term (current) use of opiate analgesic; Z79.899 Other long term (current) drug therapy

== ENCOUNTER → 2021-01-15 | Outpatient (CLI) | payer OTHER ==
[~2021-01-15] VITALS: Ht 162.6 cm; Wt 86.5 kg
[2021-01-15 09:22] VITALS: BP 140/86
--- NOTE | 2021-01-15 09:28 | NUR ---
Pain Clinic Assessment: 1. History of Osteoarthritis: Right Lower Extremity LOW BACK History of Rheumatoid Arthritis: Not Applicable 2. Height: 5 ft. 4 in. 162.6 cm. Weight: 190.6 lb. oz. 86.456 kg. Patient's BMI: 32.7 3. Vital Signs: BP: 140/86 Pulse: 89 Resp: 16 Temp: 02 Sat: 97 ECG Mon: 4. Pain Intensity: 7-8 5. Fall Risk: Dizziness: N Needs help standing or walking: N Fallen in the last 3 months: N Fall risk comments: 6. Patient on Blood Thinner: None 7. History of Hypertension: Y 8. Opioid Therapy greater than 6 weeks: Y Opiate Contract Signed: 07/29/20 9. Risk Assessment Tool Provided: 2-LOW 10. Functional Assessment Tool: 11. Recreational Drug Use: Never Drug Type: Tobacco Use: Current Every Day Smoker Tobacco Type: Cigarettes Amount or Packs/day: 1 1/2 How Many Years: Alcohol Use: Yes Frequency: Quant:
== END ==
LOC: PAIN 08:20
PROVIDERS: ATTEND Clinical Nurse Specialist Adult Health
DX: M54.16 Radiculopathy, lumbar region (principal); M25.551 Pain in right hip; F32.9 Major depressive disorder, single episode, unspecified; F41.9 Anxiety disorder, unspecified; M19.90 Unspecified osteoarthritis, unspecified site; E66.01 Morbid (severe) obesity due to excess calories; J44.9 Chronic obstructive pulmonary disease, unspecified; Z79.891 Long term (current) use of opiate analgesic; Z79.899 Other long term (current) drug therapy

== ENCOUNTER → 2021-01-27 | Outpatient (CLI) | payer OTHER ==
[~2021-01-27] VITALS: Ht 162.6 cm; Wt 85.1 kg
[~2021-01-27] MED LIST changes: +MEDROLDOSEPACK PO
[2021-01-27 08:53] VITALS: BP 129/81
--- NOTE | 2021-01-27 09:10 | NUR ---
Pain Clinic Assessment: 1. History of Osteoarthritis: Right Lower Extremity LOW BACK History of Rheumatoid Arthritis: Not Applicable 2. Height: 5 ft. 4 in. 162.6 cm. Weight: 187.6 lb. oz. 85.095 kg. Patient's BMI: 32.2 3. Vital Signs: BP: 129/81 Pulse: 90 Resp: 16 Temp: 02 Sat: 100 ECG Mon: 4. Pain Intensity: 7-8 5. Fall Risk: Dizziness: N Needs help standing or walking: N Fallen in the last 3 months: N Fall risk comments: 6. Patient on Blood Thinner: None 7. History of Hypertension: Y 8. Opioid Therapy greater than 6 weeks: Y Opiate Contract Signed: 07/29/20 9. Risk Assessment Tool Provided: 2-LOW 10. Functional Assessment Tool: 11. Recreational Drug Use: Never Drug Type: Tobacco Use: Current Every Day Smoker Tobacco Type: Cigarettes Amount or Packs/day: 1 1/2PK/DAY How Many Years: 30 Alcohol Use: Yes Frequency: Weekly Quant: 4
== END | disposition home or self-care (01) ==
LOC: PAIN 01-20 13:53
PROVIDERS: ATTEND Anesthesiology Pain Medicine
DX: M54.16 Radiculopathy, lumbar region (principal); G89.29 Other chronic pain; I10 Essential (primary) hypertension; F17.210 Nicotine dependence, cigarettes, uncomplicated; Z98.890 Other specified postprocedural states; Z79.899 Other long term (current) drug therapy; Z88.8 Allergy status to other drugs, medicaments and biological substances

== ENCOUNTER → 2021-02-17 | Outpatient (CLI) | payer OTHER ==
[~2021-02-17] VITALS: Ht 162.6 cm; Wt 86.2 kg
[~2021-02-17] MED LIST changes: +XTAMPZA ER27 MG PO
[2021-02-17 10:07] VITALS: BP 136/78
--- NOTE | 2021-02-17 10:11 | NUR ---
Pain Clinic Assessment: 1. History of Osteoarthritis: Right Lower Extremity LOW BACK History of Rheumatoid Arthritis: Not Applicable 2. Height: 5 ft. 4 in. 162.6 cm. Weight: 190.0 lb. oz. 86.184 kg. Patient's BMI: 32.6 3. Vital Signs: BP: 136/78 Pulse: 99 Resp: 16 Temp: 02 Sat: 97 ECG Mon: 4. Pain Intensity: 7 5. Fall Risk: Dizziness: N Needs help standing or walking: N Fallen in the last 3 months: N Fall risk comments: 6. Patient on Blood Thinner: None 7. History of Hypertension: Y 8. Opioid Therapy greater than 6 weeks: Y Opiate Contract Signed: 07/29/20 9. Risk Assessment Tool Provided: 2-LOW 10. Functional Assessment Tool: 11. Recreational Drug Use: Never Drug Type: Tobacco Use: Current Every Day Smoker Tobacco Type: Amount or Packs/day: How Many Years: Alcohol Use: Yes Frequency: Quant:
== END ==
LOC: PAIN 07:00
PROVIDERS: ATTEND Anesthesiology Pain Medicine
DX: M47.26 Other spondylosis with radiculopathy, lumbar region (principal); M79.661 Pain in right lower leg; E78.5 Hyperlipidemia, unspecified; I10 Essential (primary) hypertension; E03.9 Hypothyroidism, unspecified; J45.909 Unspecified asthma, uncomplicated; E66.01 Morbid (severe) obesity due to excess calories; J44.9 Chronic obstructive pulmonary disease, unspecified; G47.30 Sleep apnea, unspecified; M16.0 Bilateral primary osteoarthritis of hip; E11.9 Type 2 diabetes mellitus without complications; Z79.82 Long term (current) use of aspirin; Z79.899 Other long term (current) drug therapy; Z88.8 Allergy status to other drugs, medicaments and biological substances

== ENCOUNTER → 2021-04-28 | Outpatient (CLI) | payer OTHER ==
[~2021-04-28] VITALS: Ht 162.6 cm; Wt 88.9 kg
[~2021-04-28] MED LIST changes: +JANUVIA25 MG PO
[2021-04-28 08:54] VITALS: BP 137/84
--- NOTE | 2021-04-28 09:01 | NUR ---
Pain Clinic Assessment: 1. History of Osteoarthritis: Right Lower Extremity LOW BACK History of Rheumatoid Arthritis: Not Applicable 2. Height: 5 ft. 4 in. 162.6 cm. Weight: 196.0 lb. oz. 88.905 kg. Patient's BMI: 33.6 3. Vital Signs: BP: 137/84 Pulse: 87 Resp: 16 Temp: 02 Sat: 98 ECG Mon: 4. Pain Intensity: 7 5. Fall Risk: Dizziness: N Needs help standing or walking: N Fallen in the last 3 months: N Fall risk comments: 6. Patient on Blood Thinner: None 7. History of Hypertension: Y 8. Opioid Therapy greater than 6 weeks: Y Opiate Contract Signed: 07/29/20 9. Risk Assessment Tool Provided: 2-LOW 10. Functional Assessment Tool: 11. Recreational Drug Use: Never Drug Type: Tobacco Use: Current Every Day Smoker Tobacco Type: Cigarettes Amount or Packs/day: 1 PACK How Many Years: Alcohol Use: No Frequency: Quant:
== END | disposition home or self-care (01) ==
LOC: PAIN 03-24 10:36
PROVIDERS: ATTEND Anesthesiology Pain Medicine
DX: M54.16 Radiculopathy, lumbar region (principal); G89.29 Other chronic pain; Z98.890 Other specified postprocedural states; Z79.899 Other long term (current) drug therapy

== ENCOUNTER → 2021-06-16 | Outpatient (CLI) | payer OTHER ==
[~2021-06-16] VITALS: Ht 162.6 cm; Wt 85.2 kg
[~2021-06-16] MED LIST changes: +HYDROCODONE-AP1 EA11 PO
[2021-06-16 10:32] VITALS: BP 132/74
--- NOTE | 2021-06-16 10:48 | NUR ---
Pain Clinic Assessment: 1. History of Osteoarthritis: Right Lower Extremity LOW BACK History of Rheumatoid Arthritis: Not Applicable 2. Height: 5 ft. 4 in. 162.6 cm. Weight: 187.8 lb. oz. 85.186 kg. Patient's BMI: 32.2 3. Vital Signs: BP: 132/74 Pulse: 99 Resp: 18 Temp: 02 Sat: 97 ECG Mon: 4. Pain Intensity: 6 5. Fall Risk: Dizziness: N Needs help standing or walking: N Fallen in the last 3 months: N Fall risk comments: 6. Patient on Blood Thinner: None 7. History of Hypertension: Y 8. Opioid Therapy greater than 6 weeks: Y Opiate Contract Signed: 07/29/20 9. Risk Assessment Tool Provided: 2-LOW 10. Functional Assessment Tool: 11. Recreational Drug Use: Never Drug Type: Tobacco Use: Current Every Day Smoker Tobacco Type: Cigarettes Amount or Packs/day: 1 PACK How Many Years: 36 Alcohol Use: No Frequency: Quant:
== END ==
LOC: PAIN 06-11 10:34
PROVIDERS: ATTEND Anesthesiology Pain Medicine
DX: G89.29 Other chronic pain (principal); M54.50 Low back pain, unspecified; M79.604 Pain in right leg; M25.551 Pain in right hip; F17.210 Nicotine dependence, cigarettes, uncomplicated; I10 Essential (primary) hypertension